=== PATIENT | male | born 2000 | race Two or more races ===

== ENCOUNTER 2022-01-03 11:26 | Emergency (ER) | payer OTHER ==
[~2022-01-03] VITALS: Ht 195.6 cm; Wt 124.3 kg
--- NOTE | 2022-01-03 11:38 | NUR ---
TO ER BED 4. 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 PT ATTACHED TO MONITOR.
[2022-01-03] MEDS ORDERED: LORAZEPAM 0.5 MG TABLET ONE (12:59)
[2022-01-03] MEDS ORDERED: LORAZEPAM 1 MG TABLET PO ONE (13:00)
[2022-01-03 13:27] LABS: BASOPHILS % (AUTO) 0.3 % (0.0-2.0); EOSINOPHILS % (AUTO) 0.1 % (0.0-6.0); HEMATOCRIT 44 % (39-51); LYMPHOCYTES # (AUTO) 0.6 K/uL (0.8-4.8); LYMPHOCYTES % (AUTO) 7.1 % (20.0-44.0); MEAN CORPUSCULAR HGB CONC 34 g/dl (31.0-36.0); MEAN CORPUSCULAR VOLUME 87 fL (80-96); MONOCYTES # (AUTO) 0.5 K/uL (0.1-1.30); MONOCYTES % (AUTO) 5.8 % (2.0-12.0); NEUTROPHILS # (AUTO) 7.9 K/uL (1.8-8.9); NEUTROPHILS % (AUTO) 86.7 % (43.0-81.0); PLATELET COUNT (AUTO) 221 K/uL (150-450); RED BLOOD CELL COUNT(AUTO) 5.07 MIL/uL (4.5-6.0); WHITE BLOOD COUNT (AUTO) 9.2 K/uL (4.3-11.0)
[2022-01-03 13:37] LABS: CALCIUM, SERUM 9.2 mg/dL (8.5-10.1); CARBON DIOXIDE 26 mmol/L (21-32); CHLORIDE 104 mmol/L (98-107); CREATININE 0.9 mg/dL (0.6-1.3); GLUCOSE 145 mg/dL (74-106); POTASSIUM 3.8 mmol/L (3.5-5.1); SODIUM SERUM 142 mmol/L (136-145); UREA NITROGEN, BLOOD 8 mg/dL (7-18)
[2022-01-03 13:42] LABS: ALCOHOL, BLOOD < 3 mg/dL (0-0)
[2022-01-03 14:06] LABS: ACETAMINOPHEN < 2 ug/ml (10-30)
--- NOTE | 2022-01-03 14:15 | NUR ---
VERONICA ZHENG [phone] LEFT VM
--- NOTE | 2022-01-03 14:58 | NUR ---
CALLED [facility] AGAIN [phone]
--- NOTE | 2022-01-03 15:00 | NUR ---
ER WOULD LIKE PT TO BE EVALUATED.
--- NOTE | 2022-01-03 15:15 | NUR ---
nahun grey aware and will be coming for psych eval
--- NOTE | 2022-01-03 15:45 | NUR ---
COVID TEST COLLECTED AND SENT
--- NOTE | 2022-01-03 16:45 | NUR ---
[facility]. 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
[2022-01-03 17:40] VITALS: BP 123/71
--- NOTE | 2022-01-03 17:40 | NUR ---
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 Patient discharged to home in stable condition. Written and verbal after care instructions given. Patient verbalizes understanding of instruction.
== END 2022-01-03 17:41 | disposition home or self-care (01) ==
LOC: ER 11:26
DX: F42.9 Obsessive-compulsive disorder, unspecified (principal); F41.9 Anxiety disorder, unspecified; F32.A Depression, unspecified; Z79.899 Other long term (current) drug therapy; Z20.822 Contact with and (suspected) exposure to COVID-19
CPT/HCPCS: 36415; 80048; 80143; 80307; 80320; 85025; 87426; 99285; C9803; G0480